=== PATIENT | male | born 1985 | race African-American/Black ===

== ENCOUNTER 2021-09-03 05:16 | Emergency (ER) | payer BC ==
[~2021-09-03] VITALS: Ht 175.3 cm; Wt 86.2 kg
--- NOTE | 2021-09-03 05:25 | NUR ---
pt ambulated to room 5a without difficulty. pt a/o.
--- NOTE | 2021-09-03 05:29 | NUR ---
Dr. Carter at bedside for MSE.
[2021-09-03] MEDS ORDERED: KETOROLAC TROMETHAMINE 60 MG INJ IM ONE ×2 (05:45→05:52)
[2021-09-03] MEDS ORDERED: CYCL10TA9 PO (05:51)
[2021-09-03] MEDS ORDERED: ONDA4TAB5 PO (05:51)
[2021-09-03] MEDS ORDERED: HYDR-4209 PO (05:51)
[2021-09-03 06:10] LABS: *BILIRUBIN,URIN NEGATIVE (NEGATIVE); *BLOOD, URINE NEGATIVE (NEGATIVE); *CLARITY,URINE CLEAR (CLEAR); *COLOR,URINE YELLOW (YELLOW); *KETONES,URINE NEGATIVE (NEGATIVE); LEUKOCYTE ESTERASE ,URINE NEGATIVE (NEGATIVE); NITRITE, URINE NEGATIVE (NEGATIVE); UGLUCOSE NEGATIVE (NEGATIVE)
--- NOTE | 2021-09-03 07:33 | NUR ---
Patient discharged to home in stable condition. Written and verbal after care instructions given. Patient verbalizes understanding of instructions. Stressed follow up or return to ER for worsening s/s.
== END 2021-09-03 07:35 | disposition home or self-care (01) ==
LOC: ER 05:31
DX: M54.6 Pain in thoracic spine (principal); Z86.16 Personal history of COVID-19
CPT/HCPCS: 76705; 76770; 76775; 81003; 96372; 99285; J1885; A4663